=== PATIENT | female | born 1990 | race Hispanic/Latino ===

== ENCOUNTER 2023-01-24 19:00 | Inpatient (IN) | payer BC ==
[2023-01-24] MEDS ORDERED: Promethazine HCl 25 MG/ML VIAL IM PRN (20:29)
[2023-01-24] MEDS ORDERED: Misoprostol 100 MCG TAB VAG SCH ×2 (20:29)
[2023-01-24] MEDS ORDERED: fentaNYL 50 mcg/mL 1 mL Vial SLOW IVP PRN (20:29)
[2023-01-24] MEDS ORDERED: Acetaminophen/Codeine 30-300mg Tablet PO PRN ×2 (20:29)
[2023-01-24] MEDS ORDERED: Lidocaine 1% (PF) 30 ML VIAL SC PRN (20:29)
[2023-01-24] MEDS ORDERED: Ondansetron PF 4 MG/2 ML Vial IVP PRN (20:29)
[2023-01-24] MEDS ORDERED: hydrALAZINE 20 MG/ML VIAL SLOW IVP PRN (20:29)
[2023-01-24] MEDS ORDERED: Ibuprofen 800 MG TAB PO PRN (20:29)
[2023-01-24 20:32] VITALS: BMI 35.2
[2023-01-24] MEDS ORDERED: NS w/ Oxytocin 30 units 500 ML IV SCH ×3 (21:00)
[2023-01-24] MEDS ORDERED: Penicillin G Potassium 5 MILL.UNITS in Sodium Chloride 0.9% 100 ML IVPB SCH (21:00)
[2023-01-24 21:05] LABS: Hemoglobin 12.3 g/dL (12.0-15.5); White Blood Cell (WBC) Count 16.6 10x3/uL (3.5-10.5)
[2023-01-24 21:06] LABS: Mean Corpuscular HGB CONC 34.5 g/dL (32.0-36.0); Mean Corpuscular Hemoglobin 30.8 pg (27.0-33.0); Mean Corpuscular Volume 89.3 fl (81.6-98.3); Mean Platelet Volume 10.8 fl (7.4-10.4); Platelet Count 329 10x3/uL (150-450); RBC Distribution Width 13.2 % (11.5-14.5)
[2023-01-24 21:37] LABS: HBSAg Index 0.18 S/CO (0-0.99); Hep B Surf Ag - L&D Non-Reactive S/CO (NonReactive); Syphilis Antibody Nonreactive (Nonreactive); Syphilis Antibody Index 0.03 S/CO (<1.00 Non-Reactive)
[2023-01-25] MEDS: Penicillin G 2.5 MILL.units 2.5 MILL.UNITS in Premix Bag 1 BAG IVPB SCH ×6 (05:44→23:57)
[2023-01-25] MEDS ORDERED: fentaNYL/Ropivacaine Epidural 100 ML ONE (10:15)
[2023-01-25] MEDS: fentaNYL 2 mcg/Ropivacaine 0.2% Epidural 100 ML CADD EPIDURAL SCH ×2 (10:45→19:08)
[2023-01-25] MEDS ORDERED: diphenhydrAMINE 50 MG/ML VIAL IVP PRN (12:17)
[2023-01-25] MEDS ORDERED: Ondansetron PF 4 MG/2 ML Vial IVP PRN ×2 (12:17→23:52)
[2023-01-25] MEDS ORDERED: Moisturizing Cream (Eucerin) 113 GM JAR TOP PRN (12:17)
[2023-01-25] MEDS ORDERED: Acetaminophen 325 MG TAB PO PRN (12:17)
[2023-01-25] MEDS ORDERED: Lactated Ringer's 500 ML IV PRN (12:17)
[2023-01-25] MEDS ORDERED: Naloxone HCl 0.4 mg/ml Vial IVP PRN ×2 (12:17)
[2023-01-25] MEDS ORDERED: Promethazine HCl 25 MG/ML VIAL IM PRN (12:17)
[2023-01-25] MEDS ORDERED: ePHEDrine Sulfate 50 MG/10 ML VIAL SLOW IVP PRN (12:17)
[2023-01-25] MEDS ORDERED: Communication Order-Pharmacy FS SCH (12:30)
[2023-01-25] MEDS ORDERED: Azithromycin 500 MG VIAL ONE (20:08)
[2023-01-25] MEDS ORDERED: CEFAZOLIN 2 GM VIAL ONE (20:08)
[2023-01-25] MEDS ORDERED: Misoprostol 200 MCG TAB ONE (23:01)
[2023-01-25] MEDS ORDERED: Milk Of Magnesia 30 ML UDCUP PO PRN (23:52)
[2023-01-25] MEDS ORDERED: Boostrix 0.5 ML (Tdap) VIAL (>/=7 yrs of age) IM ONE (23:52)
[2023-01-25] MEDS ORDERED: Preparation H Ointment 28 GM TUBE PR PRN (23:52)
[2023-01-25] MEDS ORDERED: diphenhydrAMINE 25 MG CAP PO PRN (23:52)
[2023-01-25] MEDS ORDERED: hydrALAZINE 20 MG/ML VIAL SLOW IVP PRN (23:52)
[2023-01-25] MEDS ORDERED: Benzocaine-Menthol 82.5 ML CAN TOP PRN (23:52)
[2023-01-25] MEDS ORDERED: HYDROcodone/Acetaminophen 5/325 mg Tablet PO PRN (23:52)
[2023-01-25] MEDS ORDERED: Bisacodyl 10 MG SUPP PR PRN (23:52)
[2023-01-25] MEDS ORDERED: Lanolin Ointment 7 GM TUBE TOP PRN (23:52)
[2023-01-25] MEDS ORDERED: Calcium Carbonate 500 MG ChewTAB PO PRN (23:52)
[2023-01-26] MEDS: Ibuprofen 800 MG TAB PO SCH ×3 (05:34→21:11)
[2023-01-26] MEDS: Famotidine 20 MG TAB PO SCH ×2 (08:26→21:11)
[2023-01-26] MEDS: Docusate 100 MG CAP PO SCH ×2 (08:27→21:11)
[2023-01-26] MEDS: Prenatal Vitamin 1 TAB PO SCH (08:27)
[2023-01-26] MEDS: Ferrous Sulfate 325 MG TAB PO SCH (09:22)
[2023-01-26] MEDS: HYDROcodone/Acetaminophen 5/325 mg Tablet PO PRN ×2 (11:20→23:58)
[2023-01-26] MEDS ORDERED: Witch Hazel-Glycerin 1 EACH JAR TOP PRN (14:59)
[2023-01-27] MEDS: Ibuprofen 800 MG TAB PO SCH (06:10)
[2023-01-27] MEDS: HYDROcodone/Acetaminophen 5/325 mg Tablet PO PRN ×2 (06:11→09:54)
[2023-01-27] MEDS: Ferrous Sulfate 325 MG TAB PO SCH ×2 (06:53→07:20)
[2023-01-27] MEDS: Docusate 100 MG CAP PO SCH (08:24)
[2023-01-27] MEDS: Famotidine 20 MG TAB PO SCH (08:24)
[2023-01-27] MEDS: Prenatal Vitamin 1 TAB PO SCH (08:24)
[2023-01-27 09:02] VITALS: BP 117/57; TEMP 98
== END 2023-01-27 14:00 | disposition home or self-care (01) | DRG 807 ==
LOC: CSHLD 20:07 → CSHPP 01-26 01:10
PROVIDERS: ADMIT Obstetrics & Gynecology; ATTEND Obstetrics & Gynecology
PROC: 10E0XZZ Delivery of Products of Conception, External Approach (ICD-10-PCS; principal; 2023-01-25)
PROC: 0KQM0ZZ Repair Perineum Muscle, Open Approach (ICD-10-PCS; 2023-01-25)
PROC: 10907ZC Drainage of Amniotic Fluid, Therapeutic from Products of Conception, Via Natural or Artificial Opening (ICD-10-PCS; 2023-01-25)
PROC: 3E0P7VZ Introduction of Hormone into Female Reproductive, Via Natural or Artificial Opening (ICD-10-PCS; 2023-01-25)
PROC: 10H07YZ Insertion of Other Device into Products of Conception, Via Natural or Artificial Opening (ICD-10-PCS; 2023-01-25)
DX: O48.0 Post-term pregnancy (principal); Z37.0 Single live birth; Z3A.40 40 weeks gestation of pregnancy; O99.824 Streptococcus B carrier state complicating childbirth; O70.1 Second degree perineal laceration during delivery; O62.2 Other uterine inertia
CPT/HCPCS: 36415; 51702; 85027; 86780; 86850; 86900; 86901; 87340; J2540; J2590; J3490

== ENCOUNTER 2025-03-30 05:43 | Inpatient (IN) | payer OTHER ==
[2025-03-30 06:24] VITALS: BMI 33.9
[2025-03-30] MEDS ORDERED: hydrALAZINE 20 MG/ML VIAL SLOW IVP PRN ×2 (06:25→17:07)
[2025-03-30] MEDS ORDERED: Ondansetron PF 4 MG/2 ML Vial IVP PRN ×3 (06:25→17:07)
[2025-03-30] MEDS ORDERED: HYDROcodone/Acetaminophen 5/325 mg Tablet PO PRN ×3 (06:25→17:07)
[2025-03-30] MEDS ORDERED: Lidocaine 1% (PF) 30 ML VIAL SC PRN (06:25)
[2025-03-30] MEDS ORDERED: Oxytocin 30 units/NS 500 ML 500 ML IV SCH ×2 (06:25→17:07)
[2025-03-30] MEDS ORDERED: Ibuprofen 800 MG TAB PO PRN (06:25)
[2025-03-30] MEDS: Oxytocin 30 units/NS 500 ML 500 ML IV SCH (07:05)
[2025-03-30 07:07] LABS: Hematocrit 34.5 % (34.9-44.5); Hemoglobin 12.0 g/dL (12.0-15.5); Mean Corpuscular Hemoglobin 31.3 pg (27.0-33.0); Mean Corpuscular Volume 89.8 fL (81.6-98.3); Platelet Count 283 10x3/uL (150-450); Red Blood Cell (RBC) Count 3.84 10x6/uL (3.90-5.03); White Blood Cell (WBC) Count 12.67 10x3/uL (3.5-10.5)
[2025-03-30 07:40] LABS: Syphilis Antibody Index 0.03 S/CO (<1.00 Non-Reactive)
[2025-03-30 07:41] LABS: Hep B Surf Ag - L&D Non-Reactive S/CO (NonReactive)
[2025-03-30] MEDS ORDERED: Acetaminophen 500 MG TAB PO PRN (09:24)
[2025-03-30] MEDS: fentaNYL/Ropivacaine Epidural 100 ML ONE (11:05)
[2025-03-30] MEDS ORDERED: diphenhydrAMINE 50 MG/ML VIAL IVP PRN (11:18)
[2025-03-30] MEDS ORDERED: Acetaminophen 325 MG TAB PO PRN (11:18)
[2025-03-30] MEDS ORDERED: fentaNYL 2 mcg/Ropivacaine 0.2% Epidural 100 ML CADD EPIDURAL SCH (11:30)
[2025-03-30] MEDS ORDERED: Communication Order-Pharmacy FS SCH (11:30)
[2025-03-30] MEDS ORDERED: Preparation H Ointment 28 GM TUBE PR PRN (17:07)
[2025-03-30] MEDS ORDERED: Milk Of Magnesia 30 ML UDCUP PO PRN (17:07)
[2025-03-30] MEDS ORDERED: Bisacodyl 10 MG SUPP PR PRN (17:07)
[2025-03-30] MEDS ORDERED: diphenhydrAMINE 25 MG CAP PO PRN (17:07)
[2025-03-30] MEDS: Ferrous Sulfate 325 MG TAB PO SCH (17:17)
[2025-03-30] MEDS: Boostrix 0.5 ML (Tdap) VIAL (>/=7 yrs of age) IM ONE (17:18)
[2025-03-30] MEDS: Ibuprofen 800 MG TAB PO SCH (18:36)
[2025-03-30] MEDS ORDERED: Bupivacaine 0.25% HCL 30 ML VIAL ONE (19:34)
[2025-03-30] MEDS ORDERED: Bupivacaine HCl 0.5%/Epinephrine 1:200,000/PF 30 ml Vial ONE (19:34)
[2025-03-31] MEDS: Calcium Carbonate 500 MG ChewTAB PO PRN (00:16)
[2025-03-31] MEDS: Benzocaine-Menthol 82.5 ML CAN TOP PRN (01:26)
[2025-03-31 07:27] VITALS: BP 126/72; TEMP 97.6
[2025-03-31] MEDS: HYDROcodone/Acetaminophen 5/325 mg Tablet PO PRN (15:52)
== END 2025-03-31 17:00 | disposition home or self-care (01) | DRG 807 ==
LOC: CSHLD 05:43 → CSHPP 15:55
PROVIDERS: ADMIT Obstetrics & Gynecology; ATTEND Obstetrics & Gynecology
PROC: 10E0XZZ Delivery of Products of Conception, External Approach (ICD-10-PCS; principal; 2025-03-30)
PROC: 0HQ9XZZ Repair Perineum Skin, External Approach (ICD-10-PCS; 2025-03-30)
DX: O48.0 Post-term pregnancy (principal); Z37.0 Single live birth; Z3A.40 40 weeks gestation of pregnancy; O70.0 First degree perineal laceration during delivery; Z79.899 Other long term (current) drug therapy
CPT/HCPCS: 51702; 85027; 86780; 86850; 86900; 86901; 87340; J0665; J2590; J7120

== ENCOUNTER 2025-04-08 18:32 | Emergency (ER) | payer OTHER ==
[2025-04-08 19:44] LABS: Glucose, Urine (Dipstick) Normal (Negative); Leukocyte 100 (Negative); Protein, Urine (Dipstick) 15 mg/dl (Neg-Trace); Specific Gravity, Urine 1.005 (1.005-1.030)
[2025-04-08 19:58] LABS: #Basophils 0.06 10x3/uL (0.0-0.2); #Eosinophils 0.13 10x3/uL (0.0-0.5); #Monocytes 0.52 10x3/uL (0.0-1.1); #Neutrophils 8.34 10x3/uL (1.5-8.4); %Basophils 0.5 % (0.0-2.0); %Eosinophils 1.1 % (0.0-6.0); %Lymphocytes 24.9 % (18.0-47.0); %Monocytes 4.3 % (0.0-10.0); %Neutrophils 68.7 % (40.0-75.0); Hematocrit 43.6 % (34.9-44.5); Hemoglobin 14.6 g/dL (12.0-15.5); Mean Corpuscular Hemoglobin 30.4 pg (27.0-33.0); Mean Corpuscular Volume 90.6 fL (81.6-98.3); Platelet Count 409 10x3/uL (150-450); Red Blood Cell (RBC) Count 4.81 10x6/uL (3.90-5.03); White Blood Cell (WBC) Count 12.13 10x3/uL (3.5-10.5)
[2025-04-08 20:01] LABS: Bacteria/HPF Rare-Few HPF (None Seen); CAUTI Indications for Culture Pelvic or flank pain; RBC/HPF 0-3 HPF (0-3); WBC/HPF 0-3 HPF (0-3)
[2025-04-08 20:02] LABS: Urine Culture Reflex No No
[2025-04-08 20:06] LABS: ALT (SGPT) 19 U/L (Less than 34); AST (SGOT) 24 U/L (11-34); Albumin 3.9 g/dL (3.1-4.5); Alkaline Phosphatase 98 U/L (40-110); Anion Gap 12 mmol/L (10-20); BUN (Urea Nitrogen) 17 mg/dL (7.0-18.7); Bilirubin, Total 0.3 mg/dL (0.3-1.2); Calc. Creatinine Clearance 0 mL/min (70-130); Calcium 9.4 mg/dL (7.8-10.44); Carbon Dioxide 26 mmol/L (22-29); Chloride 103 mmol/L (98-107); Globulin 3.6 g/dL (2.4-3.5); Glucose 96 mg/dL (70-105); Potassium 3.7 mmol/L (3.5-5.1); Sodium 137 mmol/L (136-145)
[2025-04-08] MEDS ORDERED: Acetaminophen 500 MG TAB ONE (20:08)
== END 2025-04-08 21:24 | disposition home or self-care (01) ==
LOC: CSHERS 18:32
DX: O89.4 Spinal and epidural anesthesia-induced headache during the puerperium (principal); O13.5 Gestational [pregnancy-induced] hypertension without significant proteinuria, complicating the puerperium; R51.9 Headache, unspecified; R03.0 Elevated blood-pressure reading, without diagnosis of hypertension
CPT/HCPCS: 80053; 81001; 85025; 93005; 99284